=== PATIENT | female | born 1965 | race Caucasian/White ===

== ENCOUNTER 2020-07-24 01:31 | Emergency (ER) | payer BC, MEDICARE ==
[2020-07-24 02:19] LABS: ANION GAP 14.4 mEq/L (7-13); CHLORIDE,CL 97 mmol/L (98-107); SODIUM,NA 132 mmol/L (136-145)
--- NOTE | 2020-07-24 02:40 | CR ---
PROCEDURE INFORMATION: Exam: XR Chest Exam date and time: 07/24/2020 2:08 AM Age: 55 years old Clinical indication: Other: Chest pain; Additional info: HX chf TECHNIQUE: Imaging protocol: XR of the chest. Views: 1 view. COMPARISON: No relevant prior studies available. FINDINGS: Lungs: There is mild prominence and indistinctness of the central pulmonary vasculature and some hazy opacities are seen in the lower hemithoraces, findings that could represent pulmonary edema. Pleural spaces: Unremarkable. No pleural effusion. No pneumothorax. Heart/Mediastinum: Unremarkable. No cardiomegaly. Bones/joints: Unremarkable. IMPRESSION: Indistinctness of the pulmonary vasculature and haziness seen in the lower hemithoraces, findings that may represent pulmonary edema.
--- NOTE | 2020-07-24 02:43 | EDM.PDOC ---
ED HPI GENERAL MEDICAL PROBLEM - General Chief Complaint: General Stated Complaint: CHEST PAIN Time Seen by Provider: 07/24/20 01:35 - History of Present Illness INITIAL COMMENTS - FREE TEXT/NARRATIVE: 55 year old female with a history of CHF with an ejection fraction of 40% who presents to the ER with complaining of SOB, light headedness and feeling of fainting. This began about 15 minutes prior to ER visit. Patient r alyson she was sitting outside at their cabin and started feeling short of breath. Patient was recently discharged from the hospital in [place] for a week stay for CHF management. She is scheduled to see a hoop maker machine in five days at [facility]. She states prior to coming to the ER, she had taken an albuterol inhaler thinking it was her asthma acting up. She denies chest pain, palpitations, abdominal problems, but endorses lightheadedness and is requesting for sodium administration. She denies having any fainting episode prior to ER visit. She reports she has been medication compliant. She denies any lower extremity edema. Generalized Pain Score (Numeric/FACES): 5 - Related Data Allergies Allergy/AdvReac Type Severity Reaction Status Date / Time No Known Allergies Allergy Verified 07/22/20 10:17 Home Meds: Home Meds Cyclobenzaprine [Flexeril] 5 mg PO DAILY PRN 07/14/20 [History] Albuterol/Ipratropium [DuoNeb 3.0-0.5 MG/3 ML] 3 ml NEB Q4H PRN #30 neb 07/15/20 [Rx] Loperamide [Imodium] 2 mg PO ASDIRECTED PRN 07/15/20 [History] Albuterol [Ventolin HFA] 2 puff INH QID PRN 07/20/20 [History] Aspirin 81 mg PO BEDTIME #30 tab.chew 07/21/20 [Rx] Furosemide [Lasix] 40 mg PO DAILY #30 tablet 07/21/20 [Rx] Mometasone/Formoterol [Dulera 200-5 MCG] 2 puff IH BIDRT #1 inhaler 07/21/20 [Rx] Potassium Chloride [Klor-Con 10] 20 meq PO DAILY #30 tab.er 07/21/20 [Rx] carvediloL [Coreg] 3.125 mg PO BIDMEALS #60 tablet 07/21/20 [Rx] lisinopriL [Prinivil] 5 mg PO DAILY #30 tablet 07/21/20 [Rx] Past Medical History Cardiovascular History: Reports: Heart Failure Respiratory History: Reports: Asthma [employer]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: Endometrial Ablation, Endometriosis Musculoskeletal History: Reports: Arthritis, Fibromyalgia, Osteoarthritis - Past Surgical History GI Surgical History: Reports: Appendectomy, Cholecystectomy Female Surgical History: Reports: Hysterectomy Musculoskeletal Surgical History: Reports: Other (See Below) Other Musculoskeletal Surgeries/Procedures:: L)foot surgery Social & Family History - Family History Family Medical History: No Pertinent Family History - Tobacco Use Tobacco Use Status *Q: Current Status Unknown - Caffeine Use Caffeine Use: Reports: Other - Recreational Drug Use Recreational Drug Use Frequency: Patient Refuses To Answer - Living Situation & Occupation Living situation: Reports: , with Spouse Occupation: Employed ED ROS GENERAL - Review of Systems Review Of Systems: Comprehensive ROS is negative, except as noted in HPI. ED EXAM, GENERAL - Physical Exam Exam: See Below Exam Limited By: No Limitations General Appearance: Alert, Anxious Eye Exam: Bilateral Eye: PERRL Ears: Normal External Exam, Normal Canal, Hearing Grossly Normal, Normal TMs Nose: Normal Inspection, Normal Mucosa Throat/Mouth: Normal Oropharynx Head: Atraumatic, Normocephalic Neck: Supple, Non-Tender Respiratory/Chest: Chest Non-Tender, Decreased Breath Sounds Cardiovascular: Normal Peripheral Pulses, Regular Rate, Rhythm GI/Abdominal: Normal Bowel Sounds (Female) Exam: Deferred Rectal (Female) Exam: Deferred Back Exam: Normal Inspection Extremities: Normal Inspection Neurological: Alert, Oriented Psychiatric: Anxious Skin Exam: Intact Lymphatic: No Adenopathy #1 Interpretation EKG Date: 07/24/20 Time: 01:45 Rhythm: NSR Rate (Beats/Min): 83 #2 Interpretation EKG Date: 07/24/20 Time: 04:50 Rhythm: NSR Rate (Beats/Min): 65 Course - Vital Signs Last Recorded V/S: Last Vital Signs Temp 96 F L 07/24/20 01:38 Pulse 89 07/24/20 01:38 Resp 19 07/24/20 01:38 BP 132/66 07/24/20 01:38 Pulse Ox 98 07/24/20 01:38 - Orders/Labs/Meds Labs: Laboratory Tests 07/24/20 07/24/20 07/24/20 Range/Units 01:45 01:45 04:47 WBC 11.1 H (5.0-10.0) 10^3/uL RBC 4.58 (4.2-5.4) 10^6/uL Hgb 13.7 (12.0-16.0) g/dL Hct 40.1 (37.0-47.0) % MCV 87.6 (80-100) fL MCH 29.9 (27.0-34.0) pg MCHC 34.2 (33.0-35.0) g/dL Plt Count 569 H (150-450) 10^3/uL Neut % (Auto) 44.2 (42.2-75.2) % Lymph % (Auto) 41.0 (20.5-50.1) % [place] % (Auto) 12.1 H (2-8) % Eos % (Auto) 2.2 (1.0-3.0) % Baso % (Auto) 0.5 (0.0-1.0) % Sodium 132 L (136-145) mmol/L Potassium 4.4 (3.5-5.1) mmol/L Chloride 97 L (98-107) mmol/L Carbon Dioxide 25 (21-32) mmol/L Anion Gap 14.4 H (7-13) mEq/L BUN 24 H (7-18) mg/dL Creatinine 1.11 H (0.55-1.02) mg/dL Est Cr Clr Drug Dosing TNP Estimated GFR (MDRD) 51 BUN/Creatinine Ratio 21.6 (No establ ref range) Glucose 146 H (70-99) mg/dL Calcium 8.5 (8.5-10.1) mg/dL Total Bilirubin 0.4 (0.2-1.0) mg/dL AST 32 (15-37) U/L ALT 33 (14-59) U/L Alkaline Phosphatase 57 (46-116) U/L Troponin I 0.068 H* 0.044 (0.000-0.056) ng/mL B-Natriuretic Peptide 123 H (0-100) pg/ml Total Protein 7.0 (6.4-8.2) g/dL Albumin 3.2 L (3.4-5.0) g/dL Globulin 3.8 Albumin/Globulin Ratio 0.84 Meds: Medications Discontinued Medications Generic Name Dose Route Start Last Admin Trade Name Scarq PRN Reason Stop Dose Admin Lorazepam 0.5 mg 07/24/20 03:22 07/24/20 03:47 Lorazepam 2 Mg/Ml Sdv IVPUSH 0.5 mg BEDTIME PRN Administration Anxiety - Re-Assessments/Exams Free Text/Narrative Re-Assessment/Exam: Exam findings, lab results, chest x-ray results and EKG results reviewed with patient and her spouse. Vitals stable at this time. Oxygen nasal cannula 1 L was placed on patient for comfort. Lab results reviewed with Hospitalist at [facility] as patient was requesting transfer to this facility for continuity of care. Dr. [place] recommended Ativan for anxiety and recheck of troponin as she does not think this is cardiac related. She also offered patient a opinion to be transfer if she chooses to. This was discussed with patient and she decided to try Ativan for anxiety and will follow up with her hoop maker machine as scheduled next week Sunday. Ativan given to patient with relief in anxiety. Troponin was recheck three hours later and it was normal. Patient agreed to be discharged home and she will follow up with Dr. Ibarra as scheduled in five days 07/25/20 18:19 Departure - Departure Time of Disposition: :23 Disposition: Home, Self-Care 01 Condition: Fair Clinical Impression: CHF, Congestive heart failure, Hyponatremia, Elevated troponin, Anxiety - Discharge Information Instructions: Heart Failure, Self Care, [id number] Referrals: PCP,None [Primary Care Provider] - Forms: ED Department Discharge Additional Instructions: Follow-up with cardiology next week as scheduled. Continue taking medications as prescribed. Follow cardiology recommendation for fluid intake. Return to the ER if symptoms recur or worsen. Sepsis Event Note (ED) - Evaluation Sepsis Screening Result: No Definite Risk
[2020-07-24] MEDS ORDERED: LORazepam 2 MG/ML SDV IVPUSH PRN (03:22)
== END 2020-07-24 05:40 | disposition home or self-care (01) ==
LOC: DL.ED 01:31
DX: I50.9 Heart failure, unspecified (principal); E87.1 Hypo-osmolality and hyponatremia; R79.89 Other specified abnormal findings of blood chemistry; F41.9 Anxiety disorder, unspecified; J45.909 Unspecified asthma, uncomplicated; Z79.82 Long term (current) use of aspirin; Z79.899 Other long term (current) drug therapy
CPT/HCPCS: 36415; 71045; 80053; 83880; 84484; 85025; 93005; 96374; 99284; 99285-25; J2060